=== PATIENT | female | born 1950 | race Caucasian/White ===

== ENCOUNTER 2017-11-20 12:15 | Emergency (ER) | payer MEDICARE, OTHER ==
[~2017-11-20] VITALS: Ht 160 cm; Wt 60.3 kg
[2017-11-20] MEDS ORDERED: LISINOPRIL-HCT1 EAC1 PO (12:28)
[2017-11-20] MEDS ORDERED: ULTRAM50 MG PO (13:09)
== END 2017-11-20 13:23 | disposition home or self-care (01) ==
LOC: ED 12:15
DX: S39.012A Strain of muscle, fascia and tendon of lower back, initial encounter (principal); Z87.891 Personal history of nicotine dependence; Z91.018 Allergy to other foods; Z88.6 Allergy status to analgesic agent; Z79.899 Other long term (current) drug therapy; X58.XXXA Exposure to other specified factors, initial encounter
CPT/HCPCS: 72100; 99283

== ENCOUNTER 2019-07-07 06:20 | Day surgery (SDC) | payer MEDICARE, OTHER ==
[~2019-07-07] VITALS: Ht 160 cm; Wt 65.8 kg
[~2019-07-07 06:20] MED LIST: ACETAMINOPHEN500 MG PO; GABAPENTIN300 MG PO; LISINOPRIL-HCT1 EAC1 PO; ULTRAM50 MG PO
[2019-07-07] MEDS ORDERED: CRESTOR5 MG PO (06:36)
[2019-07-07] MEDS ORDERED: HYDROCODON-ACE1 EA11 PO (07:58)
[2019-07-07] MEDS ORDERED: CELECOXIB200 MG PO (07:58)
--- NOTE | 2019-07-07 08:04 | NUR ---
07/07/19 0804 [facility]: PT ARRIVED TO PACU, ORAL AIRWAY IN PLACE AND PT BREATING WITHOUT ASSIST. RIGHT KNEE DRESSING INTACT AND ICE IN PLACE, +3 PEDAL PULSE. 0802: PT AWOKE AND ORAL AIRWAY REMOVED AND PT MAINTAINING HER OWN AIRWAY.
--- NOTE | 2019-07-07 08:25 | NUR ---
PT ALERT, ORIENTED AND SUPPORTED BY HER JOSHUA. PT HAS HAD A MEASURE OF DISCOMFORT WITH HER KNEE, AND REALLY HOPES THIS GIVES HER A MEASURE OF RELIEF. PT REQUESTED PRAYER, WILL FOLLOW NEEDED
--- NOTE | 2019-07-07 08:45 | NUR ---
PATIENT BACK TO ROOM, PROVIDED ICE WATER AND APPLESAUCE. PATIENT APPEARS DROWSY. ANSWER QUESTIONS WITH VERBAL STIMULUS THEN BACK TO SLEEP. DRESSING C/D/I ICE APPLIED. GOOD CMS.
--- NOTE | 2019-07-07 09:12 | NUR ---
PROVIDED PATIENT PAIN MEDICAITON PER AUG. PATIENT RESTING BACK IN BED. REPORTS PAIN 8/10 ON PAIN SCALE. DRESSING C/D/I. ICE APPLIED.
--- NOTE | 2019-07-08 07:18 | OR ---
[facility] [address] [place], [place] [address] Signed DATE OF OPERATION: 07/07/2019 SURGEON: Manfred Chaves MD PREOPERATIVE DIAGNOSIS: Lateral meniscus tear, right knee. POSTOPERATIVE DIAGNOSIS: Lateral meniscus tear, right knee. PROCEDURE PERFORMED: Right knee arthroscopy with partial lateral meniscectomy. ANGIO TECHNOLOGIST: None. ANESTHESIA: General. BLOOD LOSS: Minimal. TOURNIQUET TIME: Zero. BRIEF HISTORY: Deborah is a 68-year-old female with painful giving out of her knee. She had undergone nonoperative treatment without substantial relief. Risks and benefits of operative treatment were discussed with her and she elected to proceed. DESCRIPTION OF PROCEDURE: Once consent was obtained, she was taken to the operating room. After adequate anesthesia, she was placed on the operating room table. All downside pressure points were well padded. The left leg was flexed, abducted, and externally rotated on a well-padded leg hensley. The right was placed in a well-padded proximal thigh leg hensley with no tourniquet. The knee was prepped with alcohol and portal sites were pre-injected using 0.25% Marcaine with epinephrine. The knee was then prepped and draped in a standard sterile fashion. Standard inferolateral and superolateral portals were made and the scope was introduced in the knee. Electronically Signed By: MANFRED CHAVES MD 07/08/19 0718 PATIENT NAME: DEBORAH HEARN OPERATIVE REPORT DATE OF : 52 REPORT #: [id number] PHYSICIAN: MANFRED CHAVES MD PCP: FREDDY TAVERA MD REPORT IS CONFIDENTIAL AND NOT TO BE RELEASED WITHOUT AUTHORIZATION [facility] [address] [place], [place] [address] Signed ARTHROSCOPIC FINDINGS: The patellofemoral joint was pretty much intact. Medial and lateral gutters were clear. ACL was intact. PCL was intact. Medial compartment was intact with diffuse grade 1 softening. The medial meniscus was intact. The lateral meniscus showed a diffuse tear from the mid posterior body extending anteriorly to the corner. 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 There were numerous large flaps on the condyle. DESCRIPTION OF OPERATION: Standard inferomedial portal was made after localization using a spinal needle. The straight and curved biters were then used to trim the meniscus tear back to stable rim. The shaver was used to smooth everything out in the PACU with the debris. Chondral flaps on the femur were also removed using the shaver. The scope was then withdrawn. Portals were closed with 3-0 nylon and the knee was injected with 60 mg Toradol at the end. She tolerated the procedure well. All sponge, needle, and instrument counts were correct. The wound was dressed with an Adaptic, ABD and Silvestre wrap. She was taken to the recovery room in satisfactory condition. Manfred Chaves MD BA/MODL /[id number] Copies: ~ Electronically Signed By: MANFRED CHAVES MD 07/08/19 0718 PATIENT NAME: NADIYADEBORAHPEREZ KINNEY OPERATIVE REPORT DATE OF : 52 REPORT #: [id number] PHYSICIAN: MANFRED CHAVES MD PCP: FREDDY TAVERA MD REPORT IS CONFIDENTIAL AND NOT TO BE RELEASED WITHOUT AUTHORIZATION
== END 2019-07-07 10:20 | disposition home or self-care (01) ==
LOC: DS 06:20 → OPS 06:20 → DS 06:45 → OPS 06:45 → DS 08:00 → OPS 10:20
PROVIDERS: Specialist
PROC: 0SBC4ZZ Excision of Right Knee Joint, Percutaneous Endoscopic Approach (ICD-10-PCS; principal; 2019-07-07 06:45)
DX: S83.281A Other tear of lateral meniscus, current injury, right knee, initial encounter (principal); M94.261 Chondromalacia, right knee; M70.51 Other bursitis of knee, right knee; Z79.899 Other long term (current) drug therapy; Z88.8 Allergy status to other drugs, medicaments and biological substances; Z88.6 Allergy status to analgesic agent; Z87.891 Personal history of nicotine dependence
CPT/HCPCS: A9270; J0690; J1100; J1885; J2250; J2405; J2704; J3010; J7121

== ENCOUNTER 2020-02-02 05:40 | Day surgery (SDC) | payer MEDICARE, OTHER ==
[~2020-02-02] VITALS: Ht 157.5 cm; Wt 66.7 kg
[~2020-02-02 05:40] MED LIST changes: +CALCIUM +D & M1 EACH; +CELECOXIB200 MG PO; +CRESTOR5 MG PO; +FISH OIL 1,0001 EACH PO; +HYDROCODON-ACE1 EA11 PO; +VITAMIN C1000 MG PO
[2020-02-02] MEDS ORDERED: CELECOXIB200 MG PO (07:43)
[2020-02-02] MEDS ORDERED: HYDROCODON-ACE1 EA11 PO (07:44)
--- NOTE | 2020-02-02 07:48 | NUR ---
02/02/20 0748 Yady Rogers 0740- PT ARRIVES TO PACU NONAROUSABLE TO NOXIOUS STIMULI WITH AN OPA IN PLACE AND ON 6L O2 VIA MASK. RESP EVEN AND UNLABORED. OXYGEN SAT HIGH 90'S TO 100% ON THIS. ICE PACK APPLIED TO PT'S RIGHT KNEE WITH DRESSING IN BETWEEN SKIN AND ICE PACK.
--- NOTE | 2020-02-02 08:30 | NUR ---
PATIENT BACK TO FLOOR FROM PACU, AWAKE RATING PAIN 6/10 ON PAIN SCALE. SNACKS PROVIDED WITH SIPS OF WATER. PLAN FOR PAIN CONTROL DISCUSSED. DRESSING C/D/I AND VSS. CALL LIGHT WITHIN REACH.
--- NOTE | 2020-02-02 08:45 | NUR ---
PROVIDED PATIENT WITH PAIN MEDICATION PER MAR.
--- NOTE | 2020-02-02 09:30 | NUR ---
PATIENT RATES PAIN 5/10 AND STATES " PAIN IS IS GETTING BETTER". PATIENT AMBULATED TO BATHROOM, VOIDED 400 ML. BACK TO ROOM. DRESSING C/D/I. ICE APPLIED AND ELEVATED ON PILLOW.
--- NOTE | 2020-02-02 10:30 | NUR ---
PROVIDED PATIENT WITH DISCHARGE INSTRUCTION ANSWERED QUESTIONS AND CONCERNS. DRESSING TO KNEE C/D/I, STRONG PEDAL PULSES. VSS. REMOVED IV, CATH TIP INTACT. PROVIDED WHEELCHAIR RIDE TO FRONT, ASSISTED PATIENT INTO CAR.
--- NOTE | 2020-02-05 08:17 | OR ---
[facility] [address] [place], [place] [address] Signed DATE OF OPERATION: 02/02/2020 SURGEON: Manfred Chaves MD POSTOPERATIVE DIAGNOSIS: Right knee lateral meniscus tear with synovitis. POSTOPERATIVE DIAGNOSIS: Right knee lateral meniscus tear with synovitis. PROCEDURES PERFORMED: Right knee arthroscopy with partial lateral meniscectomy and synovial biopsy. DUCO POLISHER: None. ANESTHESIA: General. BLOOD LOSS: Minimal. SPECIMEN: Biopsy of the synovium x4 to the pathology. BRIEF HISTORY: Deborah is a 69-year-old female with progressive worsening of knee pain and some mechanical issues in her knee. She underwent arthroscopy in July. Never really resolved her symptoms. She did have recurrent Lyme disease as well. Risks and benefits of operative treatment including a biopsy were discussed with her and she elected to proceed. Once consent was obtained, she was taken to the operating room. After adequate anesthesia, she was placed on operating table. All downside pressure points were well padded. The left leg was flexed, abducted, and externally rotated on a well-padded leg hensley. The right was placed in well-padded proximal thigh leg hensley with no tourniquet. The knee was prepped. We attempted the aspirate fluid, however, there was not enough fluid aspirate. We then preinjected the portal sites with 0.25% Marcaine with epinephrine. The standard inferior lateral and superolateral portals were established. The scope was introduced in the knee. Electronically Signed By: MANFRED CHAVES MD 02/05/20 0817 PATIENT NAME: DEBORAH HEARN OPERATIVE REPORT DATE OF : 52 REPORT #: [id number] PHYSICIAN: MANFRED CHAVES MD PCP: FREDDY TAVERA MD REPORT IS CONFIDENTIAL AND NOT TO BE RELEASED WITHOUT AUTHORIZATION [facility] [address] [place] [id number] Signed ARTHROSCOPIC FINDINGS: Moderate synovitis throughout the knee was noted. The patellofemoral joint showed grade 2 to grade 3 chondromalacia of the patella, grade 2 to the tibia. The medial and lateral gutters were clear. ACL and PCL were intact. Medial compartment was intact. Lateral compartment showed grade 4 chondromalacia to the tibia, grade 4 to the femur with a complex degenerative tear again along the entire lateral meniscus. DESCRIPTION OF OPERATION: Diagnostic arthroscopy was undertaken as noted above. Medial and lateral menisci were inspected. The lateral meniscus was found to have the tear and the inferomedial portal was established after localization using a spinal needle. The straight and bent biters were then used to trim the meniscus back to a stable rim. The synovial biopsies were obtained, two from the anterior inferior aspect of the knee and two from the suprapatellar pouch; these were taken from different locations. Once this was accomplished, the scope was withdrawn. Portals were closed with 3-0 nylon. The knee was not injected, secondary to her being allergic to Toradol. We then dressed the wound with Adaptic, ABD, and Silvestre wrap. She tolerated the procedure well. All sponge, needle, and instrument counts were correct. Manfred Chaves MD BA/MODL /[id number] Copies: ~ Electronically Signed By: MANFRED CHAVES MD 02/05/20 0817 PATIENT NAME: DEBORAH HEARN OPERATIVE REPORT DATE OF : 52 REPORT #: [id number] PHYSICIAN: MANFRED CHAVES MD PCP: FREDDY TAVERA MD REPORT IS CONFIDENTIAL AND NOT TO BE RELEASED WITHOUT AUTHORIZATION
--- NOTE | 2020-02-06 15:41 | PATH ---
[facility] [address] [place], [place] [address] Signed SPECIMEN(S): A SYNOVIAL BIOPSY SPECIMEN SOURCE: A. SYNOVIAL BIOPSY CLINICAL HISTORY: Right knee lateral meniscal tear with DJD. Right knee arthroscopy, lateral meniscal debridement, with biopsy of synovium. FINAL PATHOLOGIC DIAGNOSIS: Synovium, biopsy: - Fragments of synovial tissue with reactive changes and mild chronic inflammation. - Negative for granulomata or giant cells. COMMENT: As part of [employer] [facility] [employer]' Quality Improvement Program, this case was reviewed by another member of our pathology staff. NAL:NRT:cml:C2NR MICROSCOPIC EXAMINATION: Histologic sections of all submitted blocks are examined by light microscopy. These findings, together with the gross examination, support the pathologic diagnosis. GROSS DESCRIPTION: The specimen, labeled "KS, synovial biopsy," is received in formalin and consists of several pieces of pink-lyle, soft tissue fragments that aggregate 1.2 x 0.7 x 0.2 cm. The specimen is submitted in toto in a single cassette (A1). JS (under the direct supervision of a pathologist) The Gross Description was prepared using a voice recognition system. The report was reviewed for accuracy; however, sound-alike word errors, addition and/or deletions may occur. If there is any question about this report, please contact Client Services. PERFORMING LABORATORY: The technical component was performed by [facility], [address] [place] [id number] (Sql Report Developer: Nita Wells MD; CLIA# [id number]). [facility] [address] [facility] [place] [facility]. 107, PATIENT NAME: TAHIRA HEANR PATHOLOGY DATE OF : 52 REPORT #: [id number] PHYSICIAN: ROXANN PATHOLOGY PCP: FREDDY TAVERA MD REPORT IS CONFIDENTIAL AND NOT TO BE RELEASED WITHOUT AUTHORIZATION [facility] [address] [facility] [place] [facility] [place] [address] Signed [place] [address] (CLIA# [id number]). Diagnostician: Kimberli Mendez MD Pathologist Electronically Signed 02/06/2020 Copies: ~ PATIENT NAME: TAHIRA HEARN PATHOLOGY DATE OF : 52 REPORT #: [id number] PHYSICIAN: ROXANN PATHOLOGY PCP: FREDDY TAVERA MD REPORT IS CONFIDENTIAL AND NOT TO BE RELEASED WITHOUT AUTHORIZATION
== END 2020-02-02 10:30 | disposition home or self-care (01) ==
LOC: DS 05:40
PROVIDERS: Specialist
PROC: 0SBC4ZX Excision of Right Knee Joint, Percutaneous Endoscopic Approach, Diagnostic (ICD-10-PCS; 2020-02-02)
PROC: 0SBC4ZZ Excision of Right Knee Joint, Percutaneous Endoscopic Approach (ICD-10-PCS; principal; 2020-02-02 06:45)
DX: S83.271A Complex tear of lateral meniscus, current injury, right knee, initial encounter (principal); M65.861 Other synovitis and tenosynovitis, right lower leg; M17.11 Unilateral primary osteoarthritis, right knee; M22.41 Chondromalacia patellae, right knee; I10 Essential (primary) hypertension; Z79.899 Other long term (current) drug therapy; Z88.8 Allergy status to other drugs, medicaments and biological substances; Z88.5 Allergy status to narcotic agent; Z87.891 Personal history of nicotine dependence
CPT/HCPCS: 01400; 88305; A9270; J0690; J1100; J1885; J2001; J2405; J2704; J3010; J7121

== ENCOUNTER 2020-05-06 05:40 | Day surgery (SDC) | payer MEDICARE, OTHER ==
--- NOTE | 2020-04-24 11:35 | NUR ---
PATIENT HER FOR PRE-SURGICAL ADMIT, PT HAS THE FOLLOWING AT HOME: FRONT WHEEL WALKER, TOLIET SEAT RISER, HAS 3 STEPS TO GET INTO THE HOME, NO RAIL ON THE STEPS INTO THE HOME, BUT HAS A POST TO HANG ONTO IF NEEDED. HAS A SHOWER WITH A SMALL LIP WITH A SHOWER CHAIR. DOES NOT HAVE A HAND KAY SHOWER HEAD. HAS APPOINTMENT WITH [facility] FOR OUT PATIENT PHYSICAL THERAPY. AND SHE HAS A RIDE TO THERAPY FROM HER . WILL BE WITH HER DURING AND AFTER SURGERY AND WILL TRANSPORT HER TO PHYSICAL THERAPY.
[~2020-05-06] VITALS: Ht 157.5 cm; Wt 66.0 kg
[~2020-05-06 05:40] MED LIST changes: +CELEBREX200 MG PO
[2020-05-06] MEDS ORDERED: CRANBERRY200 MG PO (06:00)
[2020-05-06] MEDS ORDERED: IRON18 MG PO (06:00)
--- NOTE | 2020-05-06 08:21 | NUR ---
JERMAINE OLIVEIRA INFORMED ME THAT PT HAD REQUESTED PRAYER FROM [employer] SHE WAS BEING TAKEN TO OR. OFFERED PRAYER FOR PT, WILL FOLLOW NEEDED
--- NOTE | 2020-05-06 09:01 | NUR ---
05/06/20 0901 Nina Perea 4482 PATIENT INTO PACU, APPEARS TO BE SLEEPING SOUNDLY, AROUSES TO VERBAL STIMUL. STATES " I AM SLEEPY" RATES PAIN 0/10 ON PAINS SCALE. BEDSIDE REPORT RECIEVED. VSS. DRESSING TO RIGHT KNEE C/D/I. INCLUDES LORI, ZIPLINE, AND SMALL SITE WITH ACTICOAT THEN REINFORCED WITH TINA WARP. ONCUE TURNED TO 4 AND VERIFEIED WITH [facility] PAC SETTING. MASK ON [facility] OXYGEN TURNED UP TO 6L. PATIENT NEEDING ENCOURAGEMENT TO TAKE DEEP BREATHS. 0900 PATIENT RESTING BACK, AWAKE ON AND OFF. CONTINUING TO ENCOURAGE DEEP BREATHING. OXYGEN AT 6L, MASK. PATIENT RESPONDS TO VERBAL STIMULI, RATES PAIN 0/10 ON PAIN SCALE. DRESSING C/DI, STRONG PEDAL PULSE. CRYO IN PLACE.
--- NOTE | 2020-05-06 09:59 | NUR ---
PATIENT TO DAYSURGERY FROM PACU. PATIENT APPEARS DROWSY, AWAKE ON AND OFF WITH VERBAL STIMULUS. ENCOURAGING COUGHING AND DEEP BREATHING. VSS. PATIENT TOLERATING SIPS OF WATER. RATES PAIN 0/10 ON PAIN SCALE. BLOCK EFFECTIVE, NOTING NUMBNESS TO L2. NO NAUSEA VOMITING. DRESSING C/D/I, STRONG PEDAL PULSE. CRYO AND FOOT PUMPS ON AND IN PLACE. SECOND DOSE OF TXA ADMINISTERED.
--- NOTE | 2020-05-06 10:45 | NUR ---
PATIENT RESTING BACK IN BED, COMPLAINTS OF PAIN IN LOWER ABDOMEN. LEFT TO GET A BSC AND WALKER, WHEN RETURNED SHEETS SATURATED WITH URINE. PATIENT REPORTS LOWER ABDOMINAL PAIN RESOLVED. BLADDER SCAN <100 ML. PATIENT VOIDED 300 ML IN BEDPAN. WAS TOO NUMB IN LEGS TO GET UP TO BSC. CHANGED LINEN, FULL LINEN CHANGED. PROVIDED WARM BLANKETS AND APPLESAUCE. PATIENT AWAKE CONVERSING WITH .
--- NOTE | 2020-05-06 11:33 | NUR ---
PATIENT CALLED TO URINATE AGAIN, STILL UNABLE TO FLEX FEET AND REPORTS NUMBNESS. PLACED BED HARRY AGAIN. PROVIDED CALL LIGHT. DRESSING TO KNEE C/D/I WITH CRYO IN PLACE. PATIENT ABLE TO TURN SELF IN BED.
--- NOTE | 2020-05-06 12:02 | NUR ---
PATIENT REORTS URGE TO VOID, CONTINUES TO HAVE NUMBNESS IN LOWER LEGS JACK. PATIENT STATES " I FEEL LIKE I AM GONNA FALL IF I GET UP" PROVIDED BED HARRY. PATIENT VOIDED 400 ML OF ORANGE TINGED URINE. PATIENT REPORTS PAIN 4/10 ON PAIN SCALE REPORTING FEELS LIKE DULL ACHE. CRYO IN PLACE. PATIENT AWAKE ON AND OFF. CALL LIGHT WITHIN REACH.
--- NOTE | 2020-05-06 12:20 | NUR ---
INTO ROOM WITH ORAL PAIN MEDICATION, PATIENT STATES " THAT BLOCK ISN'T WORKING, I AM HAVING SO MUCH PAIN, I AM PAINFUL" ADMINISTERED PAIN MEDICATION PER MAR. DISCUSSED WITH PATIENT MEDICATION AND SIDE EFFECTS AND ESTIMATE OF HOW LONG UNTIL WOULD BE WORKING. PATIENT VERBALIZED UNDERSTANDING. CALL LIGHT WITHIN REACH. NO OTHER NEEDS AT THIS TIME.
--- NOTE | 2020-05-06 13:50 | NUR ---
PATIENT UP TO [facility], VOIDED. APPEARED TO TRANSFER WELL WITH WALKER AND STBY ASSIST. CALLED TO MEDICAL SURGICAL FLOOR TO NOTIFY PHYSICAL THERAPY PATENT READY FOR EVALUATION.
[2020-05-06] MEDS ORDERED: XARELTO10 MG PO (14:43)
[2020-05-06] MEDS ORDERED: OXYCODONE HCL5 MG PO (14:44)
[2020-05-06] MEDS ORDERED: ASPIRIN EC325 MG PO (14:44)
[2020-05-06] MEDS ORDERED: STOOL SOFTENER1 EAC4 PO (14:44)
--- NOTE | 2020-05-06 15:30 | NUR ---
PATIENT TO PHYSICAL THERAPY WHO REPORTS PATIENT IS OKAY TO GO HOME FROM HER ASSESMENT. PATIENT REPORTS PAIN 8/10 ON PAIN SCALE AND IS REQUESTING MORE PAIN MEDICATION. PROVIDED EDUCATION AND REASSURED PATIENT, PATIENT ALSO READING MANUAL TO LORI AND ATTEMPTING TO RESET DEVICE. DISCUSSED WITH PATIENT USE OF DEVICE AND HOW TO START AGAIN WHEN PAUSED AND OTHER TROUBLESHOOTING WHEN DOESN'T FEEL IS WORKING WELL AT HOME. PROVIDED INSTRUCTION TO AND PATIENT ON HOW TO FILL AND USE THE CRYO CUFF AT HOME. PATIENT AND VERBALIZED UNDERSTANDING.
--- NOTE | 2020-05-06 16:30 | NUR ---
DISCUSSED PAIN MANAGEMENT WITH PATIENT WHO VERBALIZED " MY PAIN IS CLIMBING FROM A 7 TO A 10" NOTED WHEN LEAVING THE ROOM AND COMING BACK INTO THE ROOM THE PATIENT RESTING WITH EYES CLOSED. VSS AND WITHIN PATIENT BASELINE. PATIENT DOES NOT APPEAR TO GRIMACE. CALLED TO DR. ACEVEDO AND REPORTED FINDINGS AND PATIENT PAIN RATINGS. PATIENT VERBALIZED WILLING TO GO HOME AND BE DISCHARGED. TELEPHONE ORDER FROM DR. ACEVEDO TO DISCHARGE PATIENT HOME. DISCUSSED WITH PATIENT WHO VERBALIZES WANTING TO GO HOME.
--- NOTE | 2020-05-06 17:52 | NUR ---
REINFORCED LORI DRESSING WITH OPSITES TO ATTEMPT TO CORRECT THE LEAK FLASHING ON THE DEVICE. UNABLE TO GET THE LORI TO RESET. CHARGE NURSE JOSSELYN LOOMIS DISCUSSED THAT PATIENT MAY NOT GET SEAL WITH DRESSING. DRESSING APPEARS C/D/I. PATIENT HAS JACK COMPRESSION STOCKINGS ON. PATIENT THEN AMBULATED TO BATHROOM AND VOIDED. PROVIDED DISCHARGE INSTRUCTION TO PATIENT AND , DISCUSSING DETAILED EDUCATION WITH CARE AT HOME, MEDICATIONS, AND EQUIPMENT AND FOLLOW UP. ANSWERED ALL QUESTIONS AND CONCERNS. SPENT 60 MINUTES WITH PATIENT DISCUSSING EDUCATION. PROVIDED WHEELCHAIR RIDE TO THE FRONT. PROVIDED FRESH ICE IN CRYO AND MADE SURE PATIENT HAD REPLACEMENT LORI DRESSING IN PERSONAL BAG. PATIENT DEMONSTRATED KNOWLEDGE OF DISCHARGE EDUCATION AND PARTICPATED IN DISCHARGE.
--- NOTE | 2020-05-07 08:06 | OR ---
[facility] [address] [place], [place] [address] Signed DATE OF OPERATION: 05/06/2020 SURGEON: Manfred Chaves MD PREOPERATIVE DIAGNOSIS: Degenerative joint disease, right knee. POSTOPERATIVE DIAGNOSIS: Degenerative joint disease, right knee. PROCEDURE PERFORMED: Right knee arthroplasty with Akash. PROGRAM TRAINER: 1. Katie Koenig PA-C. 2. KENROY Castro. ANESTHESIA: Spinal. BLOOD LOSS: 200 mL. TOURNIQUET TIME: Zero. IMPLANTS: Dov Triathlon size 3 femur, size 2 tibia, 9 mm insert, and 32 mm patella. BRIEF HISTORY: Deborah is a 69-year-old lady with progressive knee pain despite 2 arthroscopies, anti-inflammatories, injections, and bracing as well as physical therapy. Risks and benefits of operative treatment were discussed with her and she elected to proceed. DESCRIPTION OF PROCEDURE: Once consent was obtained, she was taken to the operating room and after adequate anesthesia, she was placed on the operating table. All downside pressure points were well padded. Right hip bump was placed. The leg was then prepped and draped in a standard sterile fashion. She had a prior incision that was utilized and extended distally to an inch. This was carried through skin and subcutaneous tissue. A Electronically Signed By: MANFRED CHAVES MD 05/07/20 0806 PATIENT NAME: DEBORAH HEARN OPERATIVE REPORT DATE OF : 52 REPORT #: [id number] PHYSICIAN: MANFRED CHAVES MD PCP: FREDDY TAVERA MD REPORT IS CONFIDENTIAL AND NOT TO BE RELEASED WITHOUT AUTHORIZATION [facility] [address] [place], [place] [address] Signed subvastus approach was undertaken. The adhesions were lysed and the patella was mobilized laterally. The infrapatellar fat pad was excised and the MCL was elevated as a sleeve around the posteromedial corner. This was done in a subperiosteal manner and all bleeders were cauterized as we went. The anterior horn of the lateral meniscus was transected. ACL was transected. Medial meniscus was absent in the most part. The knee was flexed and the navigation checkpoints were placed in the medial epicondyle and in the proximal tibia. The computer rays were then placed, one in the tibia, one handsbreadth below the tuberosity through 2 separate stab incisions. The other was placed intra-articularly in the medial femoral condyle. The leg was then registered with the computer and the fine anatomic points were registered. Once this was completed, stress views were taken and the prosthesis alignment was then manipulated to create equal extension and flexion gaps. Once this was completed, the robot was brought in and 4 straight cuts were made starting with the tibia. The blade was then switched to the angle blade and the 2 angle cuts were made. Care was taken to protect the soft tissue throughout this. The bone cuts were removed. There were very minimal osteophytes. She was hyperextended prior to surgery, so no posterior release was performed. The trials were then positioned and the knee had excellent ligamentous balance and excellent range of motion. The patella was cut sized and drilled for a 32 patella. There was a small exostosis in the patellar tendon inferiorly. I felt, however, this would damage the patellar tendon extensively if we try to remove it, so I elected to leave it. The distal femoral drill holes were made and the proximal tibia was finished using the keel punch. The bone was pulse lavaged and packed with dry Ray-Yahaira. Due the softness of the bone, we elected to proceed with a hybrid prosthesis. The cement was mixed. When it reached proper consistency, it was placed in the tibia and the patella. The tibial and patellar components also had cement placed on them. The tibia was impacted into position first with all excess cement removed. The polyethylene was snapped into position and the femur was impacted. The knee was extended and nicely loaded. The patella was clamped into position. Again, any overflow was removed. The cement was allowed to harden. Once hardened sufficiently, the remaining cement was removed using osteotomes. The knee range of motion and stability was excellent. The periarticular soft tissues were injected with 100 mL ropivacaine and Toradol mixture. The On-Q pain pump was then placed percutaneously into the adductor canal from the suprapatellar pouch. The arthrotomy was closed using #1 Vicryl and #2 Stratafix. Subcutaneous tissue with 0 Stratafix, and skin with a ZipLine. The wound was dressed with a LORI wound VAC dressing and Silvestre wrap. She was awakened and taken to the recovery room in satisfactory condition. All sponge, needle, and instrument counts were correct. Manfred Chaves MD Electronically Signed By: MANFRED CHAVES MD 05/07/20 0806 PATIENT NAME: DEBORAH HEARN OPERATIVE REPORT DATE OF : 52 REPORT #: [id number] PHYSICIAN: MANFRED CHAVES MD PCP: FREDDY TAVERA MD REPORT IS CONFIDENTIAL AND NOT TO BE RELEASED WITHOUT AUTHORIZATION [facility] [address] [place] [address] Signed BA/MODL /[id number] Copies: ~ Electronically Signed By: MANFRED CHAVES MD 05/07/20 0806 PATIENT NAME: DEBORAH HEARN OPERATIVE REPORT DATE OF : 52 REPORT #: [id number] PHYSICIAN: MANFRED HCAVES MD PCP: FREDDY TAVERA MD REPORT IS CONFIDENTIAL AND NOT TO BE RELEASED WITHOUT AUTHORIZATION
== END 2020-05-06 17:40 | disposition home or self-care (01) ==
LOC: DS 05:40
PROVIDERS: ATTEND Specialist
PROC: 3E0T3BZ Introduction of Anesthetic Agent into Peripheral Nerves and Plexi, Percutaneous Approach (ICD-10-PCS; 2020-05-06)
PROC: 3E0T3BZ Introduction of Anesthetic Agent into Peripheral Nerves and Plexi, Percutaneous Approach (ICD-10-PCS; 2020-05-06)
PROC: 0SRC0J9 Replacement of Right Knee Joint with Synthetic Substitute, Cemented, Open Approach (ICD-10-PCS; principal; 2020-05-06 06:45)
DX: M17.11 Unilateral primary osteoarthritis, right knee (principal); M94.261 Chondromalacia, right knee; M70.51 Other bursitis of knee, right knee; I10 Essential (primary) hypertension; E78.00 Pure hypercholesterolemia, unspecified; G89.18 Other acute postprocedural pain; M81.0 Age-related osteoporosis without current pathological fracture; Z79.899 Other long term (current) drug therapy; Z79.1 Long term (current) use of non-steroidal anti-inflammatories (NSAID); Z88.8 Allergy status to other drugs, medicaments and biological substances; Z87.891 Personal history of nicotine dependence; Z01.812 Encounter for preprocedural laboratory examination; Z20.828 Contact with and (suspected) exposure to other viral communicable diseases
CPT/HCPCS: 01402; 64447; 64450; 76942; 97110; 97116; 97161; C1713; C1776; J0690; J0735; J1100; J1885; J2001; J2250; J2405; J2704; J2765; J2795; J3010; J7121

== ENCOUNTER 2020-06-23 11:29 | Emergency (ER) | payer MEDICARE, OTHER ==
[~2020-06-23] VITALS: Ht 157.5 cm; Wt 62.6 kg
[~2020-06-23 11:29] MED LIST changes: +ASPIRIN EC325 MG PO; +CRANBERRY200 MG PO; +IRON18 MG PO; +OXYCODONE HCL5 MG PO; +STOOL SOFTENER1 EAC4 PO; +XARELTO10 MG PO
--- OUTSIDE RECORDS SUMMARY | 2020-06-23 11:32 | XMS ---
PreManage Notification: TAHIRA HEARN Security Electrification Adviser Events No recent Security Events currently on file CRITERIA MET - [facility] CARE PROVIDERS There are no care providers on record at this time. Ailin has no Care Guidelines for this patient. Francesco VISIT COUNT (12 MO.) 1 DEANN Winter TOTAL 1 NOTE: Visits indicate total known visits. ED/C VISIT TRACKING (12 MO.) 06/23/2020 11:30 DEANN Alonzo [place] TYPE: Emergency COMPLAINT: - RIGHT ANKLE, LEFT LEG PAIN INPATIENT VISIT TRACKING (12 MO.) No inpatient visits to display in this time frame [email or web address]
[2020-06-23] MEDS ORDERED: NORCO 7.5-3251 EACH PO (11:50)
== END 2020-06-23 12:15 | disposition home or self-care (01) ==
LOC: ED 11:29
DX: S93.401A Sprain of unspecified ligament of right ankle, initial encounter (principal); M79.662 Pain in left lower leg; X58.XXXA Exposure to other specified factors, initial encounter; Z85.3 Personal history of malignant neoplasm of breast; N18.30 Chronic kidney disease, stage 3 unspecified; Z79.899 Other long term (current) drug therapy; Z88.8 Allergy status to other drugs, medicaments and biological substances; Z88.6 Allergy status to analgesic agent
CPT/HCPCS: 73590; 73610; 99283-25

== ENCOUNTER 2023-10-20 10:30 | Emergency (ER) | payer MEDICARE, OTHER ==
[~2023-10-20] VITALS: Ht 157.5 cm; Wt 65.5 kg
[~2023-10-20 10:30] MED LIST changes: +NORCO 7.5-3251 EACH PO
[2023-10-20] MEDS ORDERED: PRAMIPEXOLE DI0.5 MG PO (11:00)
[2023-10-20] MEDS ORDERED: FUROSEMIDE 40 MG/4 ML VIAL IV ONE (11:00)
[2023-10-20] MEDS ORDERED: CARBIDOPA-LEVO1 EAC1 PO (11:00)
[2023-10-20] MEDS ORDERED: AMLODIPINE BESYL5 MG PO (11:00)
[2023-10-20 11:22] LABS: EOSINOPHILS 4.7 % (0-6); HEMATOCRIT 35.1 % (35.0-50.0); HEMOGLOBIN 11.7 g/dL (12.0-18.0); MCH 28.1 (27-36); MCHC 33.4 g/dl (30-36); MCV 84.3 fl (81-99); MONOCYTES 5.8 % (0-12); NEUTROPHILS 69.5 % (39-80); PLATELET COUNT 201 K/uL (140-440); RBC 4.17 M/ul (4.3-5.7); RDW 13.6 (10.5-15.0)
[2023-10-20 11:52] LABS: ALBUMIN 3.4 g/dL (3.4-5.0); ALBUMIN/GLOBULIN RATIO 1.03 (1.1-2.4); ANION GAP 9.9 (7-21); BILIRUBIN, TOTAL 0.4 ng/dL (0.2-1.0); BUN/CREATININE RATIO 15.78 (6.0-28.6); CREATININE, SERUM 1.14 mg/dL (0.55-1.02); POTASSIUM 2.9 mmol/L (3.5-5.1); PROTEIN, TOTAL 6.7 g/dL (6.4-8.2)
[2023-10-20 12:18] LABS: ERYTHROCYTE SEDIMENTATION RATE 20
[2023-10-20] MEDS ORDERED: LASIX20 MG PO (12:59)
[2023-10-20 13:11] VITALS: BP 146/70
== END 2023-10-20 13:23 | disposition home or self-care (01) ==
LOC: ED 10:30
PROVIDERS: Emergency Medicine
DX: R60.0 Localized edema (principal); R23.3 Spontaneous ecchymoses; Z88.8 Allergy status to other drugs, medicaments and biological substances; Z91.018 Allergy to other foods; Z88.6 Allergy status to analgesic agent; Z79.899 Other long term (current) drug therapy
CPT/HCPCS: 36415; 80053; 83880; 85025; 85651; 86140; 96374; 99283-25; J1940

== ENCOUNTER 2024-08-23 05:39 | Day surgery (SDC) | payer MEDICARE ==
[~2024-08-23] VITALS: Ht 154.9 cm; Wt 63.6 kg
[~2024-08-23 05:39] MED LIST changes: +AMITRIPTYLINE H25 MG PO; +AMLODIPINE BESYL5 MG PO; +CARBIDOPA-LEVO1 EAC1 PO; +LACTATED RINGER'S 1,000 ML IV SCH; +LASIX20 MG PO; +METHOCARBAMOL500 MG PO; +PRAMIPEXOLE DI0.5 MG PO
[2024-08-23 06:04] VITALS: BP 105/63
[2024-08-23] MEDS ORDERED: SODIUM CHLORIDE 0.9% 20 ML IV ONE (06:19)
[2024-08-23] MEDS ORDERED: propofoL 200 MG/20 ML VIAL ONE (06:19)
[2024-08-23] MEDS ORDERED: Ropivacaine HCl 0.5% 30 ML VIAL ONE (06:19)
[2024-08-23] MEDS ORDERED: LIDOCAINE HCL 2% 5 ML SDV ONE (06:19)
[2024-08-23] MEDS ORDERED: dexmedeTOMIDine HCl 200 MCG/2 ML VIAL ONE (06:20)
[2024-08-23] MEDS ORDERED: HYDROCODONE/ACETA 7.5/325 TAB PO PRN (06:45)
[2024-08-23] MEDS ORDERED: ePHEDrine sulfate 50 MG/ML AMP ONE (06:59)
[2024-08-23] MEDS ORDERED: IBLOOD GLUCOSE TEST STRIP 1 EA TEST VI PRN ×2 (07:00→08:30)
[2024-08-23] MEDS ORDERED: LIDOCAINE HCL 1% 5 ML SDV INJ ONE (07:00)
[2024-08-23] MEDS ORDERED: CEFAZOLIN SODIUM 2 GM/20 ML SYR IV SCH (07:00)
[2024-08-23] MEDS ORDERED: LACTATED RINGER'S 1,000 ML IV ONE (07:19)
[2024-08-23] MEDS ORDERED: HYDROCODON-ACE1 EA11 PO (08:16)
--- NOTE | 2024-08-23 08:18 | NUR ---
08/23/24 0818 Minnie Giron 0812-PATIENT ARRIVED TO PACU ON 6L MASK RR EVEN. PATIENT NONAROUSABLE SR HR 70'S. IVF INFUSING. LEFT ARM ELEVATED ON PILLOW DRESSING INTACT ICE APPLIED. FINGERS ARE WARM GOOD CAP REFILL LATA RADIAL PULSE.
[2024-08-23] MEDS ORDERED: ACETAMINOPHEN 1,000 MG/100 ML VIAL IV ONE (08:30)
[2024-08-23] MEDS ORDERED: fentaNYL citrate 50 MCG/ML SDV IV PRN (08:30)
[2024-08-23] MEDS ORDERED: NALOXONE HCL 0.4 MG SYR IV PRN (08:30)
--- NOTE | 2024-08-23 08:55 | NUR ---
PT ARRIVES TO DS FROM PACU VIA STRETCHER. PT REPORTS PAIN IS 8/10, BUT FREQUENTLY CLOSING EYES. RESPIRATIONS EVEN AND UNLABORED, NO SIGNS OF DISTRESS. ICE PACK AND ELEVATION IN PLACE. PT TOLERATING SIPS OF ICE WATER WITHOUT DIFFICULTY SWALLOWING, NO NAUSEA AT THIS TIME. CALL LIGHT WITHIN REACH, PT REPORTS NO FURTHER NEEDS OR QUESTIONS AT THIS TIME.
[2024-08-23 08:57] VITALS: BP 107/58
--- NOTE | 2024-08-23 09:20 | NUR ---
PT RESTING W/EYES CLOSED. THIS RN IN ROOM FOR PROVIDING CRACKERS AND APPLESAUCE, PT TOLERATING WITHOUT REPORT OF NAUSEA. ADDITIONAL WARM BLANKETS PROVIDED, JEFF HUGGER IN PLACE. CALLED AT PT REQUEST FOR INFO ON PRESCRIPTION FOR PICKUP. CALL LIGHT WITHIN REACH, PT STATES NO FURTHER NEEDS OR QUESTIONS AT THIS TIME.
--- NOTE | 2024-08-23 09:40 | NUR ---
IN PT ROOM W/FRIEND NAN (PT RIDE). PT IS A&O AND CONSUMED 100% OF CRACKERS/APPLESAUCE. PT STATES PAIN IS TOLERABLE AT 4/10 AT THIS TIME, PT ABLE TO SLIGHTLY LIFT ARM AND WIGGLE FINGERS, BUT NUMBNESS THROUGHOUT LFT EXTREMITY. VS TAKEN. PT STATES NEED TO URINE VOID, AMBULATES TO RESTROOM W/THIS RN STANDBY ASSIST. PT GAIT IS STEADY AND PT REPORTS NO DIZZINESS OR NAUSEA W/AMBULATION. THIS RN ASSISTS PT W/GETTING DRESSED. THIS RN PROVIDES DC EDUCATION, PT STATES VERBAL UNDERSTANDING AND NO FURTHER QUESTIONS AT THIS TIME. PT OFF OF UNIT VIA WC TO PASSENGER SIDE OF VEHICLE, ALL BELONGINGS IN PT POSSESSION AT THIS TIME. PT REPORTS NO FURTHER NEEDS AT THIS TIME. ICE PACK PROVIDED.
[2024-08-23 09:55] VITALS: BP 111/55
[2024-08-23] MEDS ORDERED: SEVOFLURANE 250 ML BTL INH ONE (15:02)
--- NOTE | 2024-08-28 06:51 | OR ---
[facility] [address], [place] [address] Signed DATE OF OPERATION: 08/23/2024 SURGEON: Manfred Chaves MD PREOPERATIVE DIAGNOSIS: CMC arthrosis, left hand. POSTOPERATIVE DIAGNOSIS: CMC arthrosis, left hand. PROCEDURE PERFORMED: Left thumb LRTI. MORTGAGE PROCESSING MANAGER: None. ANESTHESIA: General. TOURNIQUET TIME: 60 minutes. BRIEF HISTORY: Deborah is a 73-year-old female with progressive worsening of CMC arthrosis not controlled with bracing and injections. Risks and benefits of surgery were discussed with her and she elected to proceed. DESCRIPTION OF PROCEDURE: Once consent was obtained, she was taken to the operating room. After adequate anesthesia, she was placed on the operating table with a hand table. The arm was prepped and draped in a standard sterile fashion up to a well-padded proximal arm tourniquet. The arm was exsanguinated using Esmarch bandage. Tourniquet inflated to 200 mmHg. The CMC joint was approached through a curvilinear incision along the volar margin. This was carried through the skin and subcutaneous tissue. The thenar musculature and capsule were elevated off the CMC joint and taken over to the FCR. The FCR was carefully identified, retracted and protected. The trapezium was then cleared off soft tissue attachment medially and laterally. It was then split with an osteotome and removed piecemeal. Once this was completed, the FCR was harvested from a proximal longitudinal incision and brought down into the wound. A #2 FiberWire suture was then placed into it. The Arthrex kit was not available, so we elected to proceed with a Electronically Signed By: MANFRED CHAVES MD 08/28/24 0651 PATIENT NAME: DEBORAH HEARN OPERATIVE REPORT DATE OF : 52 REPORT #: [id number] PHYSICIAN: MANFRED CHAVES MD PCP: JUAN LAMB REPORT IS CONFIDENTIAL AND NOT TO BE RELEASED WITHOUT AUTHORIZATION [facility] [address] [place], [place] [address] Signed standard LRTI. The 4 mm drill was then used to drill a hole obliquely from the radial volar aspect of the metacarpal to the ulnar dorsal aspect. Once this was completed, the FCR was brought out through this using the push-pull method the base of the 1st metacarpal was against the base of the 2nd. Using #2 FiberWire, the FCR was sutured back to itself at its base with three [id number] sutures. The remainder of the tendon was then sutured into and placed down into the defect. Once this was accomplished, there was good stability of the metacarpal. The wound was copiously irrigated with normal saline and the capsule was closed using 2-0 Monocryl, subcutaneous tissue with 3-0 Monocryl and the skin with 3-0 Stratafix. The proximal incision was closed with 3-0 Monocryl and all wounds were sealed with LiquiBand and Steri-Strips and dressed with Allevyn dressing. She was then placed in a thumb spica splint over sterile cast padding. She tolerated the procedure well. All sponge, needle, and instrument counts were correct. Manfred Chaves MD BA/MODL /[id number] Copies: ~ Electronically Signed By: MANFRED CHAVES MD 08/28/24 0651 PATIENT NAME: DEBORAH HEARN OPERATIVE REPORT DATE OF : 52 REPORT #: [id number] PHYSICIAN: MANFRED CHAVES MD PCP: JUAN LAMB REPORT IS CONFIDENTIAL AND NOT TO BE RELEASED WITHOUT AUTHORIZATION
== END 2024-08-23 10:15 | disposition home or self-care (01) ==
LOC: DS 05:39
PROVIDERS: ATTEND Specialist
PROC: 0RQ Upper Joints, Repair (ICD-10-PCS; principal; 2024-08-23 07:00)
DX: M18.0 Bilateral primary osteoarthritis of first carpometacarpal joints (principal); I10 Essential (primary) hypertension; G20.A1 Parkinson's disease without dyskinesia, without mention of fluctuations; Z87.891 Personal history of nicotine dependence; Z79.899 Other long term (current) drug therapy; Z88.6 Allergy status to analgesic agent; Z88.8 Allergy status to other drugs, medicaments and biological substances
CPT/HCPCS: 01830; 64417; J0131; J0690; J2003; J2704; J2795; J7121

== ENCOUNTER 2025-01-29 14:13 | Emergency (ER) | payer MEDICARE, OTHER ==
[~2025-01-29] VITALS: Ht 154.9 cm; Wt 65.0 kg
[~2025-01-29 14:13] MED LIST changes: -LACTATED RINGER'S 1,000 ML IV SCH
[2025-01-29] MEDS ORDERED: ASPIRIN 81 MG CHEW PO ONE (14:30)
[2025-01-29 14:39] LABS: BASOPHILS 0.9 % (0.1-1.2); EOSINOPHILS 0.5 % (0.7-5.8); LYMPHOCYTES 18.6 % (19.3-51.7); MCH 27.3 PG (25.6-32.2); MCHC 32.3 g/dL (32.2-35.5); MCV 84.4 fL (79.4-94.8); MONOCYTES 9.1 % (4.7-12.5); NEUTROPHILS 70.7 % (34.0-71.1); RBC 4.36 M/uL (3.93-5.22)
[2025-01-29 15:01] LABS: ALT (SGPT) 12.0 U/L (14-59); AST (SGOT) 16.0 U/L (15-37); GLOMERULAR FILTRATION RATE,EST 51.0 mL/min (>60); PROTEIN, TOTAL 6.7 g/dL (6.4-8.2); UREA NITROGEN 20.0 mg/dL (7-18)
[2025-01-29 16:30] VITALS: BP 122/62
--- NOTE | 2025-01-31 21:34 | EKG ---
[facility] [address] [facility] [place] [address] Signed Sinus rhythm with premature supraventricular complexes Nonspecific ST abnormality Abnormal ECG When compared with ECG of 30-JAN-2020 16:34, premature supraventricular complexes are now present Vent. rate has increased BY 41 BPM T wave inversion now evident in Inferior leads QT has lengthened Confirmed by Lorene Corrales MD () on 01/31/2025 9:34:35 PM Electronically Signed By: LORENE CORRALES MD 01/31/25 2134 PATIENT NAME: TAHIRA HEARN Electrocardiogram DATE OF : 52 PHYSICIAN: LORENE CORRALES MD REPORT #: [id number] REPORT IS CONFIDENTIAL AND NOT TO BE RELEASED WITHOUT AUTHORIZATION
--- NOTE | 2025-01-31 21:35 | EKG ---
[facility] [address] [facility] [place] [facility] [place] [address] Signed Normal sinus rhythm Normal ECG When compared with ECG of 29-JAN-2025 14:20, premature supraventricular complexes are no longer present Confirmed by Lorene Corrales MD () on 01/31/2025 9:35:18 PM Electronically Signed By: LORENE CORRALES MD 01/31/255 PATIENT NAME: TAHIRA HEARN Electrocardiogram DATE OF : 52 PHYSICIAN: LORENE CORRALES MD REPORT #: [id number] REPORT IS CONFIDENTIAL AND NOT TO BE RELEASED WITHOUT AUTHORIZATION
== END 2025-01-29 16:33 | disposition home or self-care (01) ==
LOC: ED 14:13
PROVIDERS: Emergency Medicine
DX: R07.9 Chest pain, unspecified (principal); I10 Essential (primary) hypertension; E78.5 Hyperlipidemia, unspecified; G20.A1 Parkinson's disease without dyskinesia, without mention of fluctuations; Z88.8 Allergy status to other drugs, medicaments and biological substances; Z79.899 Other long term (current) drug therapy
CPT/HCPCS: 36415; 71045; 80053; 83735; 84484; 85025; 93005; 93010; 99285-25; A9270